=== PATIENT | female | born 1980 | race Caucasian/White ===

== ENCOUNTER 2017-01-27 08:09 | Emergency (ER) | payer OTHER ==
[~2017-01-27] VITALS: Ht 163.8 cm; Wt 59.0 kg
[~2017-01-27 08:09] MED LIST: AMOX500C PO; HYDR-971 PO; ONDA4TAB7 PO; PENI500T PO
[2017-01-27 08:11] VITALS: BP 134/78
[2017-01-27] MEDS ORDERED: HYDROcodone/APAP 5/325MG 1 TAB TABLET PO ONE (08:30)
[2017-01-27] MEDS ORDERED: CYCLOBENZAPRINE 10 MG TABLET. PO ONE (08:30)
--- NOTE | 2017-01-27 08:42 | RAD ---
Indication fall. Pain. AP and lateral views of the lumbar spine were obtained as well as a coned view targeted to the lumbosacral junction. Vertebral height alignment and disc spaces appear normal. No acute finding is seen. There are no significant degenerative changes. Clips are noted in the gallbladder fossa. IMPRESSION: Normal plain films of the lumbar spine
--- NOTE | 2017-01-27 08:47 | PHYS DOC ---
Past Medical History Past Medical History: Other Additional Past Medical Histor: brain aneurysm Past Surgical History: Cholecystectomy, Tonsillectomy, Tubal ligation, Other Additional Past Surgical Histo: brain coil (anyrysm) Alcohol Use: None Drug Use: None Adult General Chief Complaint Chief Complaint: BACK PAIN OR INJURY HPI HPI Patient is a 36 year old female with no significant medical history who presents today with 8 out of 10 sharp bilateral low back pain nonradiating in nature that began yesterday after she fell down 3-4 steps. Patient denies any loss of consciousness. Denies any numbness or tingling to bilateral lower extremities. Denies any loss of bowel bladder function. Patient states the pain is worse when she is ambulating or sitting in certain positions. Review of Systems Review of Systems Constitutional: Denies fever or chills [] Eyes: Denies change in visual acuity, redness, or eye pain [] GI: Denies abdominal pain, nausea, vomiting, bloody stools or diarrhea [] : Denies dysuria or hematuria [] Musculoskeletal: Bilateral low back pain Integument: Denies rash or skin lesions [] Neurologic: Denies headache, focal weakness or sensory changes [] Endocrine: Denies polyuria or polydipsia [] Current Medications Current Medications Current Medications Medications (Trade) Dose Ordered Sig/Mitra Start Time Stop Time Status Last Admin Dose Admin Acetaminophen/ Hydrocodone Bitart (Lortab 5/325) 1 tab 1X ONCE 01/27/17 08:30 01/27/17 08:37 DC 01/27/17 08:36 1 TAB Cyclobenzaprine HCl (Flexeril) 10 mg 1X ONCE 01/27/17 08:30 01/27/17 08:37 DC 01/27/17 08:36 10 MG Allergies Allergies Allergies Coded Allergies Type Severity Reaction Last Updated Verified No Known Drug Allergies 11/15/13 No Physical Exam Physical Exam Constitutional: Well developed, well nourished, no acute distress, non-toxic appearance. [] HENT: Normocephalic, atraumatic, bilateral external ears normal, oropharynx moist, no oral exudates, nose normal. [] Eyes: PERRLA, EOMI, conjunctiva normal, no discharge. [] Neck: Normal range of motion, no tenderness, supple, no stridor. [] Skin: Warm, dry, no erythema, no rash. [] Back: Diffuse paraspinal muscle tenderness to bilateral lower lumbar region worse on the right, no midline lumbar spine tenderness, no CVA tenderness. [] Extremities: No tenderness, no cyanosis, no clubbing, ROM intact, no edema. [] Neurologic: Alert and oriented X 3, normal motor function, normal sensory function, no focal deficits noted. [] Psychologic: Affect normal, judgement normal, mood normal. [] Current Patient Data Vital Signs Vital Signs Date Time Temp Pulse Resp B/P (MAP) Pulse Ox O2 Delivery O2 Flow Rate FiO2 01/27/17 08:36 18 01/27/17 08:11 98.8 91 99 Room Air 98.8 EKG EKG [] Radiology/Procedures Radiology/Procedures []PROCEDURE: LUMBAR SPINE 2-3V Indication fall. Pain. AP and lateral views of the lumbar spine were obtained as well as a coned view targeted to the lumbosacral junction. Vertebral height alignment and disc spaces appear normal. No acute finding is seen. There are no significant degenerative changes. Clips are noted in the gallbladder fossa. IMPRESSION: Normal plain films of the lumbar spine DICTATED and SIGNED BY: MISAEL ALLEN MD DATE: 01/27/17 0838 CC: HERMAN LOUIE APRN; NO PCP; NON,STAFF ~ Course & Med Decision Making Course & Med Decision Making Pertinent Labs and Imaging studies reviewed. (See chart for details) Patient is in the ED with complaints of low back pain after falling down 3-4 steps. Lumbar x-rays interpreted by radiologist are negative for any acute findings. Patient has lumbar contusion. Ice or heat recommended to the lumbar spine. Follow-up with PCP in the next 1-2 weeks. Provided return precautions and discharged in stable condition. Dragon Disclaimer Dragon Disclaimer This electronic medical record was generated, in whole or in part, using a voice recognition dictation system. Departure Departure Impression: Primary Impression: Lumbar contusion Additional Impression: Fall down steps Disposition: 01 HOME, SELF-CARE Condition: STABLE Referrals: NO PCP (PCP) Follow-up with your own doctor in 1-2 week Patient Instructions: Back Pain, Adult Additional Instructions: You were seen for lumbar contusion after falling. Please take the prescribed medicines as ordered. Follow-up with your own doctor in the next 1-2 weeks. You can apply ice or heat to your back. Scripts Naproxen (NAPROXEN) 500 Mg Tablet. 1 TAB PO BID, #60 TAB 2 Refills Prov: HERMAN LOUIE APRN 01/27/17 Cyclobenzaprine Hcl (CYCLOBENZAPRINE HCL) 10 Mg Tablet 1 TAB PO TID, #30 TAB Prov: HERMAN LOUIE APRN 01/27/17 Hydrocodone/Apap 5-325 (NORCO 5-325 TABLET) 1 Each Tablet 1-2 TAB PO Q4-6HRS, #10 TAB Prov: HERMAN LOUIE APRN 01/27/17 Problem Qualifiers Primary Impression: Lumbar contusion Encounter type: initial encounter Qualified Codes: S30.0XXA - Contusion of lower back and pelvis, initial encounter Additional Impression: Fall down steps Encounter type: initial encounter Qualified Codes: W10.8XXA - Fall (on) ( from) other stairs and steps, initial encounter HERMAN LOUIE APRN January 27, 2017 08:47
[2017-01-27] MEDS ORDERED: CYCL10TA2 PO (08:59)
[2017-01-27] MEDS ORDERED: HYDR-971 PO (08:59)
[2017-01-27] MEDS ORDERED: NAPR500T8 PO (08:59)
== END 2017-01-27 09:04 | disposition home or self-care (01) ==
LOC: ER 08:22
DX: S30.0XXA Contusion of lower back and pelvis, initial encounter (principal); Z90.49 Acquired absence of other specified parts of digestive tract; Z98.51 Tubal ligation status; W10.8XXA Fall (on) (from) other stairs and steps, initial encounter; Y93.89 Activity, other specified; Y92.89 Other specified places as the place of occurrence of the external cause; Y99.8 Other external cause status
CPT/HCPCS: 72100; 99284

== ENCOUNTER 2017-05-21 15:02 | Emergency (ER) | payer OTHER ==
[~2017-05-21] VITALS: Ht 165.1 cm; Wt 63.5 kg
[~2017-05-21 15:02] MED LIST changes: +CYCL10TA2 PO; +NAPR500T8 PO
--- NOTE | 2017-05-21 15:27 | PHYS DOC ---
Past Medical History Past Medical History: Other Additional Past Medical Histor: brain aneurysm Past Surgical History: Cholecystectomy, Tonsillectomy, Tubal ligation, Other Additional Past Surgical Histo: brain coil (anyrysm) Alcohol Use: None Drug Use: None Adult General Chief Complaint Chief Complaint: DENTAL PROBLEM HPI HPI Patient is a 37 year old female presents to the emergency department with complaints of left lower dental pain with facial swelling. She states she developed dental pain yesterday evening and awakened this morning with facial swelling. She has no difficulty swallowing or phonation. No fever. No trismus Review of Systems Review of Systems Constitutional: Denies fever or chills [] Eyes: Denies change in visual acuity, redness, or eye pain [] HENT: Denies nasal congestion or sore throat; facial swelling, dental pain [] Respiratory: Denies cough or shortness of breath [] Cardiovascular: No additional information not addressed in HPI [] GI: Denies abdominal pain, nausea, vomiting, bloody stools or diarrhea [] : Denies dysuria or hematuria [] Musculoskeletal: Denies back pain or joint pain [] Integument: Denies rash or skin lesions [] Neurologic: Denies headache, focal weakness or sensory changes [] Endocrine: Denies polyuria or polydipsia [] Allergies Allergies Allergies Coded Allergies Type Severity Reaction Last Updated Verified No Known Drug Allergies 11/15/13 No Physical Exam Physical Exam Constitutional: Well developed, well nourished, no acute distress, non-toxic appearance. [] HENT: Normocephalic, atraumatic, bilateral external ears normal, oropharynx moist, no oral exudates, nose normal. Left lower dental, tooth #20, with decay, interval erythema and swelling. She does have mild swelling over the mandible. The skin is without erythema. No voice changes. Or drooling. [] Neck: Normal range of motion, no tenderness, supple, no lymphadenopathy, no stridor. [] Cardiovascular:Heart rate regular rhythm, no murmur [] Lungs & Thorax: Bilateral breath sounds clear to auscultation [] Skin: Warm, dry, no erythema, no rash. [] Back: No tenderness, no CVA tenderness. [] Neurologic: Alert and oriented X 3, normal motor function, normal sensory function, no focal deficits noted. [] EKG EKG [] Radiology/Procedures Radiology/Procedures [] Course & Med Decision Making Course & Med Decision Making Pertinent Labs and Imaging studies reviewed. (See chart for details) [] Dragon Disclaimer Dragon Disclaimer This electronic medical record was generated, in whole or in part, using a voice recognition dictation system. Departure Departure Impression: Primary Impression: Dental abscess Disposition: HOME, SELF-CARE Condition: STABLE Referrals: NO PCP (PCP) [facility] Patient Instructions: Dental Abscess, Dental Caries Scripts Tramadol Hcl (TRAMADOL HCL) 50 Mg Tablet 50 MG PO Q6HRS Y for PAIN, #12 TAB 0 Refills Prov: SOO ANDREW APRN 05/21/17 Penicillin V Potassium (PENICILLIN V POTASSIUM) 500 Mg Tablet 1 TAB PO QID, #40 TAB Prov: SOO ANDREW APRN 05/21/17 Naproxen (NAPROSYN) 500 Mg Tablet 500 MG PO BID Y for PAIN, #20 TAB Prov: SOO ANDREW APRN 05/21/17 SOO ANDREW APRN May 21, 2017 15:27
[2017-05-21 15:30] VITALS: BP 120/73
[2017-05-21] MEDS ORDERED: PENI500T PO (15:31)
[2017-05-21] MEDS ORDERED: TRAM50TA PO (15:31)
[2017-05-21] MEDS ORDERED: NAPR500T PO (15:31)
== END 2017-05-21 15:39 | disposition home or self-care (01) ==
LOC: ER 15:02
DX: K04.7 Periapical abscess without sinus (principal)
CPT/HCPCS: 99283

== ENCOUNTER 2018-01-12 10:09 | Emergency (ER) | payer OTHER ==
[2018-01-12] MEDS: oxyCODONE/APAP 5/325 1 TAB TABLET PO (10:59)
== END 2018-01-12 11:02 | disposition home or self-care (01) ==
LOC: ER 11:02
DX: K02.9 Dental caries, unspecified (principal); K08.89 Other specified disorders of teeth and supporting structures
CPT/HCPCS: 99283

== ENCOUNTER 2018-07-14 22:43 | Emergency (ER) | payer OTHER ==
[~2018-07-14] VITALS: Ht 162.6 cm; Wt 63.5 kg
[~2018-07-14 22:43] MED LIST changes: +NAPR-683 PO; +OXYC-323 PO; +TRAM50TA PO
[2018-07-15] MEDS ORDERED: diazePAM 5 MG TABLET PO ONE (00:15)
[2018-07-15] MEDS ORDERED: MORPHINE SULFATE 10 MG/ML VIAL. IM ONE (00:15)
[2018-07-15 01:00] VITALS: BP 128/72
[2018-07-15] MEDS ORDERED: IBUP-1060 PO (02:03)
[2018-07-15] MEDS ORDERED: DIAZ5TAB PO (02:03)
[2018-07-15] MEDS ORDERED: OXYC-323 PO (02:03)
--- NOTE | 2018-07-15 02:58 | PHYS DOC ---
Past Medical History Past Medical History: Other Additional Past Medical Histor: chronic back pain Past Surgical History: No Surgical History Additional Past Surgical Histo: NEUROSURGERY-COIL FOR ANEURYSM 2013 Alcohol Use: None Drug Use: None Adult General Chief Complaint Chief Complaint: MECHANICAL FALL HPI HPI Patient is a 38 year old female who presents after a fall. The patient was at work today when she slipped on a wet floor and fell backwards. She landed on her back and twisted her back as she fell. She presents to the ER complaining of diffuse low back pain and some pain over the neck as well. She did not strike her head when she fell. She had no loss of consciousness, she denies vision changes, nausea or vomiting. Her pain is not midline. She complains of muscle pain about the back and trapezius muscles. She has no numbness or tingling or weakness in the upper or lower extremities. She has no loss of bowel or bladder. No saddle anesthesia. Review of Systems Review of Systems Constitutional: Denies fever or chills Eyes: Denies change in visual acuity HENT: Denies nasal congestion Respiratory: Denies cough or shortness of breath Cardiovascular: No additional information not addressed in HPI GI: Denies abdominal pain : Denies Musculoskeletal: as documented above Integument: Denies rash Neurologic: Denies headache All other systems were reviewed and found to be within normal limits, except as documented in this note. Current Medications Current Medications Current Medications Medications (Trade) Dose Ordered Sig/Mitra Start Time Stop Time Status Last Admin Dose Admin Diazepam (Valium) 5 mg 1X ONCE 07/15/18 00:15 07/15/18 00:16 DC 07/15/18 00:13 5 MG Morphine Sulfate (Morphine Sulfate) 10 mg 1X ONCE 07/15/18 00:15 07/15/18 00:16 DC 07/15/18 00:14 10 MG Allergies Allergies Allergies Coded Allergies Type Severity Reaction Last Updated Verified No Known Drug Allergies 11/15/13 No Physical Exam Physical Exam Constitutional: Well developed, well nourished, no acute distress, non-toxic appearance HENT: Normocephalic, atraumatic, bilateral external ears normal, oropharynx moist Eyes: PERRLA, EOMI Neck: Normal range of motion, no tenderness, supple, no midline tenderness Cardiovascular:Heart rate regular rhythm, no murmur Lungs & Thorax: Bilateral breath sounds clear to auscultation Skin: Warm, dry Back: Diffuse muscle spasm in the paraspinal muscles. No midline tenderness over the posterior spinous processes, no CVA tenderness Extremities: No injuries found Neurologic: Alert and oriented X 3, normal motor function, normal sensory function, no focal deficits noted Psychologic: Affect normal Current Patient Data Vital Signs Vital Signs Date Time Temp Pulse Resp B/P (MAP) Pulse Ox O2 Delivery O2 Flow Rate FiO2 07/15/18 01:00 78 18 99 07/15/18 00:14 Room Air 07/14/18 23:27 98.6 137/70 (92) 98.6 EKG EKG [] Radiology/Procedures Radiology/Procedures [] Course & Med Decision Making Course & Med Decision Making Pertinent Labs and Imaging studies reviewed. (See chart for details) Cody was evaluated in the emergency department following a ground level fall. There was no indication for imaging. She was given a dose of morphine intramuscularly in the emergency department and by mouth Valium. Her symptoms were improved. Patient was discharged home with Percocet, Valium, and ibuprofen. Opiate precautions were discussed. She was advised to follow-up with her primary care doctor or her Worker's Compensation physician. Otherwise, return to the emergency department for any new or worsening symptoms Dragon Disclaimer Dragon Disclaimer This electronic medical record was generated, in whole or in part, using a voice recognition dictation system. Departure Departure Impression: Primary Impression: Back strain Additional Impression: Fall Disposition: HOME, SELF-CARE Condition: GOOD Patient Instructions: Back Pain, Adult, [id number], Pain Medicine Instructions, [id number] Scripts Diazepam (VALIUM) 5 Mg Tablet 5 MG PO TID for muscle spasm, #21 TAB Prov: TRACI JOHNSON DO 07/15/18 Oxycodone/Apap 5-325 (PERCOCET 5-325 MG TABLET) 1 Each Tablet 1-2 EACH PO PRN TID PRN for severe pain, #25 TAB pain Prov: TRACI JOHNSON DO 07/15/18 Ibuprofen (IBUPROFEN) 800 Mg Tablet 800 MG PO PRN TID PRN for moderate pain, #30 TAB take with food or milk to avoid upsetting stomach Prov: TRACI JOHNSON DO 07/15/18 Problem Qualifiers TRACI JOHNSON DO Jul 15, 2018 02:58
== END 2018-07-15 02:20 | disposition home or self-care (01) ==
LOC: ER 22:43
DX: S39.012A Strain of muscle, fascia and tendon of lower back, initial encounter (principal); G89.29 Other chronic pain; M54.9 Dorsalgia, unspecified; W01.0XXA Fall on same level from slipping, tripping and stumbling without subsequent striking against object, initial encounter; Y93.89 Activity, other specified; Y92.89 Other specified places as the place of occurrence of the external cause; Y99.8 Other external cause status
CPT/HCPCS: 96372; 99283; J2270

== ENCOUNTER 2019-06-09 16:59 | Emergency (ER) | payer OTHER ==
[~2019-06-09] VITALS: Ht 162.6 cm; Wt 74.6 kg
[~2019-06-09 16:59] MED LIST changes: +DIAZ5TAB PO; +HYDR-3164 PO; -HYDR-971 PO; +IBUP-1060 PO; -OXYC-323 PO; +OXYC1TAB15 PO
[2019-06-09 17:04] VITALS: BP 171/84
--- NOTE | 2019-06-09 17:12 | PHYS DOC ---
Past Medical History Past Medical History: Other Additional Past Medical Histor: chronic back pain Past Surgical History: No Surgical History Additional Past Surgical Histo: NEUROSURGERY-COIL FOR ANEURYSM 2013 Alcohol Use: None Drug Use: None Adult General Chief Complaint Chief Complaint: SKIN RASH/ABSCESS [facility] HPI Patient is a 39 year old female who presents with rash that has been ongoing since Saturday. She states that she was working at [employer] when this started. The patient states that the rash is bilateral arms neck face. Denies rash to abdomen back and legs. Denies fevers. His of the rash is painful to pain is 10 out of 10 in severity. Denies itching. Review of Systems Review of Systems Constitutional: Denies fever or chills [] Eyes: Denies change in visual acuity, redness, or eye pain [] HENT: Denies nasal congestion or sore throat [] Respiratory: Denies cough or shortness of breath [] Cardiovascular: No additional information not addressed in HPI [] GI: Denies abdominal pain, nausea, vomiting, bloody stools or diarrhea [] : Denies dysuria or hematuria [] Musculoskeletal: Denies back pain or joint pain [] Integument: Reports rash. Neurologic: Denies headache, focal weakness or sensory changes [] Endocrine: Denies polyuria or polydipsia [] Complete systems were reviewed and found to be within normal limits, except as documented in this note. Allergies Allergies Allergies Coded Allergies Type Severity Reaction Last Updated Verified No Known Drug Allergies 11/15/13 No Physical Exam Physical Exam Constitutional: Well developed, well nourished, no acute distress, non-toxic appearance. [] HENT: Normocephalic, atraumatic, bilateral external ears normal, oropharynx moist, no oral exudates, nose normal. [] Eyes: PERRLA, EOMI, conjunctiva normal, no discharge. [] Neck: Normal range of motion, no tenderness, supple, no stridor. [] Cardiovascular:Heart rate regular rhythm, no murmur [] Lungs & Thorax: Bilateral breath sounds clear to auscultation [] Abdomen: Bowel sounds normal, soft, no tenderness, no masses, no pulsatile masses. [] Skin: vesicular rash on arms, and face. It is in clusters. Back: No tenderness, no CVA tenderness. [] Extremities: No tenderness, no cyanosis, no clubbing, ROM intact, no edema. [] Neurologic: Alert and oriented X 3, normal motor function, normal sensory function, no focal deficits noted. [] Psychologic: Affect normal, judgement normal, mood normal. [] Current Patient Data Vital Signs Vital Signs Date Time Temp Pulse Resp B/P (MAP) Pulse Ox O2 Delivery O2 Flow Rate FiO2 06/09/19 17:04 98.5 94 18 171/84 (113) 100 Room Air 98.5 EKG EKG [] Radiology/Procedures Radiology/Procedures [] Course & Med Decision Making Course & Med Decision Making Pertinent Labs and Imaging studies reviewed. (See chart for details) Will have patient follow up with primary care for additional workup. Rash could possibly be autoimmune in nature. Dragon Disclaimer [employer] Disclaimer This electronic medical record was generated, in whole or in part, using a voice recognition dictation system. Departure Departure Impression: Primary Impression: Rash Disposition: HOME, SELF-CARE Condition: STABLE Referrals: NO PCP (PCP) Patient Instructions: Rash Additional Instructions: Thank you for visiting [facility] We appreciate you trusting us with your care. If any additional problems come up don't hesitate to return to visit us. Please follow up with your primary care provider so they can plan additional care if needed and know about the problem that you had. If symptoms worsen come back to the Emergency Department. Any concerning symptoms that start such as chest pain, shortness of air, weakness or numbness on one side of the body, running high fevers or any other concerning symptoms return to the ER. LOREN CARNES APRN Jun 09, 2019 17:12
== END 2019-06-09 17:33 | disposition home or self-care (01) ==
LOC: ER 16:59
DX: R21 Rash and other nonspecific skin eruption (principal); G89.29 Other chronic pain
CPT/HCPCS: 99281